=== PATIENT | female | born 1990 | race Caucasian/White ===

== ENCOUNTER 2020-03-10 11:45 | Day surgery (SDC) | payer MEDICAID ==
[2020-03-08 12:10] LABS: BASOPHILS % (AUTO) 0 % (0-1); EOSINOPHILS % (AUTO) 1 % (1-7); LYMPHOCYTES % (AUTO) 45 % (22-44); MEAN CORPUSCULAR HGB CONC 33.4 g/dL (32.4-35.8); MEAN PLATELET VOLUME 7.4 fL (7.4-10.4); MONOCYTES % (AUTO) 10 % (2-9); NEUTROPHILS % (AUTO) 44 % (42-75); PLATELET COUNT 297 x10^3/uL (130-400); RED BLOOD COUNT 5.47 x10^6/uL (3.82-5.3); RED CELL DISTRIBUTION WIDTH 13.5 % (9.6-15.2)
[2020-03-08 12:11] LABS: MD NO
[~2020-03-10] VITALS: Ht 162.6 cm; Wt 69.1 kg
[~2020-03-10 11:45] MED LIST: MULT-672 PO; [UNRECOGNIZED DRUG - OTHER] PO
[2020-03-10 12:20] VITALS: BP 131/87
[2020-03-10] MEDS ORDERED: LIDOCAINE-MPF 1%, 2ML INFIL ONE (12:30)
[2020-03-10] MEDS ORDERED: ACETAMINOPHEN 500 MG TABLET PO ONE (12:30)
[2020-03-10] MEDS ORDERED: CHLORHEXIDINE 15 ML UDC MM ONE (12:30)
[2020-03-10] MEDS ORDERED: LACTATED RINGERS 1,000 ML IV SCH (12:30)
[2020-03-10] MEDS ORDERED: OXYcodone 5 MG/5 ML ORAL.SOL UDC PO PRN (13:30)
[2020-03-10] MEDS ORDERED: MEPERIDINE/PF 25MG/0.5ML IVPush PRN (13:30)
[2020-03-10] MEDS ORDERED: ONDANSETRON 2MG/ML, 2ML IVPush PRN (13:30)
[2020-03-10] MEDS ORDERED: PROMETHAZINE 25 MG/ML, 1ML IVPush PRN (13:30)
[2020-03-10] MEDS ORDERED: LABETALOL 5MG/ML, 20ML IV PRN (13:30)
[2020-03-10] MEDS ORDERED: HYDROmorphone 1 MG/ML, 1ML INJ IVPush PRN (13:30)
[2020-03-10] MEDS ORDERED: hydrALAzine 20 MG/ML, 1ML IV PRN (13:30)
[2020-03-10] MEDS ORDERED: EPHEDRINE 50 MG/ML, 1ML IVPush PRN (13:30)
[2020-03-10] MEDS ORDERED: FENTANYL PF 100 MCG/2ML ONE ×2 (14:15→16:08)
[2020-03-10] MEDS ORDERED: MIDAZOLAM 1 MG/ML, 2ML ONE (14:15)
[2020-03-10] MEDS ORDERED: EPINEPHRINE 1 MG/ML, 1ML ONE (14:23)
[2020-03-10] MEDS ORDERED: BUPIVACAINE/PF 0.25% ONE (14:23)
[2020-03-10] MEDS ORDERED: SUGAMMADEX 200 MG/2 ML IVPush ONE (14:44)
[2020-03-10] MEDS ORDERED: KETOROLAC 30 MG/1 ML ONE (14:44)
[2020-03-10] MEDS ORDERED: PROPOFOL 10 MG/ML, 20ML ONE (14:46)
[2020-03-10] MEDS ORDERED: SUCCINYLCHOLINE 20 MG/ML, 10ML ONE (14:46)
[2020-03-10] MEDS ORDERED: ROCURONIUM 10MG/ML,5ML ONE (14:46)
[2020-03-10] MEDS ORDERED: DEXAMETHASONE 4 MG/ML, 1ML ONE (14:46)
[2020-03-10] MEDS ORDERED: ONDANSETRON 2MG/ML, 2ML ONE (14:46)
[2020-03-10] MEDS ORDERED: METOPROLOL 1 MG/ML, 5ML ONE (15:26)
[2020-03-10] MEDS ORDERED: MEPERIDINE/PF 25MG/ML,1ML ONE (15:47)
[2020-03-10] MEDS ORDERED: OXYcodone 5 MG/5 ML ORAL.SOL UDC ONE (16:08)
[2020-03-10] MEDS ORDERED: PROMETHAZINE 25 MG/ML, 1ML ONE (16:12)
[2020-03-10] MEDS: FENTANYL PF 100 MCG/2ML IV PRN ×2 (16:13→16:18)
== END 2020-03-10 17:40 | disposition home or self-care (01) ==
LOC: OUT 11:45
PROVIDERS: ATTEND Obstetrics & Gynecology
DX: Z30.2 Encounter for sterilization (principal); J45.909 Unspecified asthma, uncomplicated; Z79.899 Other long term (current) drug therapy; Z20.828 Contact with and (suspected) exposure to other viral communicable diseases; Z98.890 Other specified postprocedural states
CPT/HCPCS: 36415; 58670; 84703; 85025; 87635; 88302; J0171; J0330; J1100; J1885; J2175; J2250; J2405; J2550; J2704; J3010; J7120